=== PATIENT | male | born 1995 | race Hispanic/Latino ===

== ENCOUNTER 2021-10-13 20:08 | Emergency (ER) | payer OTHER, MEDICAID ==
[2021-10-14 01:47] LABS: SARS-CoV-2 PCR by NAA Not Detected (NotDetected)
== END 2021-10-13 21:45 ==
LOC: ERS 20:08
DX: J06.9 Acute upper respiratory infection, unspecified (principal); Z20.822 Contact with and (suspected) exposure to COVID-19
CPT/HCPCS: 71045; U0003; U0005

== ENCOUNTER 2023-06-17 09:54 | Emergency (ER) | payer SELFPAY ==
[2023-06-17] MEDS ORDERED: Ondansetron ODT 4 MG TAB ONE (10:46)
[2023-06-17] MEDS ORDERED: Benzonatate 100 MG CAP ONE (10:47)
[2023-06-17 11:09] LABS: SARS-CoV-2 NAA Rapid Test Not Detected (NotDetected)
== END 2023-06-17 11:10 | disposition home or self-care (01) ==
LOC: ERS 09:54
DX: B34.9 Viral infection, unspecified (principal); Z20.822 Contact with and (suspected) exposure to COVID-19
CPT/HCPCS: 99283; Q0162

== ENCOUNTER 2023-08-15 15:57 | Emergency (ER) | payer OTHER, SELFPAY ==
[2023-08-15 17:16] LABS: SARS-CoV-2 NAA Rapid Test Not Detected (NotDetected)
== END 2023-08-15 17:31 | disposition home or self-care (01) ==
LOC: ERS 15:57
DX: B34.9 Viral infection, unspecified (principal); Z20.822 Contact with and (suspected) exposure to COVID-19
CPT/HCPCS: 99283